=== PATIENT | female | born 1950 | race Caucasian/White ===

== ENCOUNTER 2017-10-07 18:35 | Emergency (ER) | payer MEDICARE, OTHER ==
[2017-10-07 19:11] LABS: #Eosinphils 0.2 thou/uL (0.0-0.7); #Lymphocytes 2.8 thou/uL (1.20-3.40); #Monocytes 0.9 thou/uL (0.11-0.59); %Basophils 0.6 % (0.0-1.0); %Eosinophils 3.4 % (0.0-10.0); %Lymphocytes 40.2 % (21.0-51.0); %Monocytes 12.7 % (0.0-10.0); %Neutrophils 43.1 % (42.0-75.0); Mean Corpuscular HGB CONC 34.6 g/dL (32.0-36.0); Mean Corpuscular Hemoglobin 33.3 pg (27.0-31.0); Mean Corpuscular Volume 96.2 fl (81.0-99.0); Mean Platelet Volume 9.4 fL (7.4-10.4); Platelet Count 152 thou/uL (130-400); Red Blood Cell (RBC) Count 3.92 mill/uL (4.20-5.40)
[2017-10-07 19:35] LABS: ALT (SGPT) 12 U/L (8-55); AST (SGOT) 15 U/L (5-34); Albumin 4.5 g/dL (3.4-4.8); Alkaline Phosphatase 63 U/L (40-150); Anion Gap 13 mmol/L (10-20); BUN (Urea Nitrogen) 17 mg/dL (9.8-20.1); Bilirubin, Total 0.7 mg/dL (0.2-1.2); CK (CPK) 81 U/L (29-168); Calc. Creatinine Clearance 0 mL/min (70-130); Calcium 9.3 mg/dL (7.8-10.44); Carbon Dioxide 26 mmol/L (23-31); Chloride 102 mmol/L (98-107); Estimated GFR-MDRD 49; Globulin 2.6 g/dL (2.4-3.5); Glucose 87 mg/dL (80-115); Lipase 54 U/L (8-78); Potassium 3.4 mmol/L (3.5-5.1); Protein, Total 7.1 g/dL (6.0-8.3); Sodium 138 mmol/L (136-145)
--- NOTE | 2017-10-07 21:01 | CT ---
CT ABDOMEN AND PELVIS WITH IV CONTRAST 10/07/17 Multiple axial tomograms obtained through the abdomen and pelvis with IV enhancement. Oral contrast w as not administered. INDICATIONS: Left lower quadrant abdominal pain. There is a history of diverticulitis. Comparison made to a CT abdomen and pelvis 01/23/16 which did demonstrate diverticulitis in the left l ower quadrant. FINDINGS: Lung bases clear. Liver, spleen, and pancreas unremarkable. Adrenal glands and kidneys unremarkable. There is mild distention of the proximal small bowel loops. There is also fecalization of these loops which is nonspecific but often can be seen with bowel obstruction. The distal small bowel loops are normal caliber. This raises the possibility of a low grade small bowel obstruction in the proximal sm all bowel. There appears to be an abrupt change in caliber and this could represent an adhesion. The colon is filled with stool. There are mild inflammatory changes surrounding the lower left colon. There is diverticulosis present. This would indicate early changes of diverticulitis. There is no ev idence of extraluminal fluid, abscess, or gas. Images through the pelvis show unremarkable urinary bladder. The patient appears to be post hysterect ramirez. Aorta is normal caliber. IMPRESSION: 1. Mild dilatation of proximal small bowel loops. There is fecalization within these loops and t here is an abrupt change in caliber in the mid to proximal small bowel. Low grade obstruction possibl y from adhesion is suspected. 2. Mild inflammatory change involving the lower left colon consistent with diverticulitis. No ev idence of extraluminal fluid or abscess. 3. Also noted are tiny radiodense gallstones within the gallbladder. POS: [facility]
[2017-10-07 23:06] LABS: Bilirubin Small (Negative); Blood, Urine Negative (Negative); Clarity CLEAR (Clear); Glucose, Urine (Dipstick) Negative (Negative); Leukocyte Moderate (Negative); Nitrite Negative (Negative); Protein, Urine (Dipstick) Trace mg/dL (Neg-Trace); Specific Gravity, Urine 1.027 (1.002-1.036); Urobilinogen 0.2 mg/dL (0.2-1.0)
[2017-10-07 23:11] LABS: Bacteria/HPF None Seen HPF (None Seen); Hyaline Casts/LPF 4-6 HYALINE CAST LPF (0-3 Hyaline); Pathc Cast-AUWi Flag 0.29 (0-2.49); Squamous Epithelial 0-3 HPF (0-3); WBC/HPF 21-50 HPF (0-3)
[2017-10-07 23:22] LABS: RBC/HPF 0-3 HPF (0-3)
== END 2017-10-07 22:58 | disposition home or self-care (01) ==
LOC: ERS 18:35
DX: K56.609 Unspecified intestinal obstruction, unspecified as to partial versus complete obstruction (principal); K57.92 Diverticulitis of intestine, part unspecified, without perforation or abscess without bleeding; I25.10 Atherosclerotic heart disease of native coronary artery without angina pectoris; I10 Essential (primary) hypertension; E78.5 Hyperlipidemia, unspecified; J45.909 Unspecified asthma, uncomplicated; Z79.82 Long term (current) use of aspirin; Z79.899 Other long term (current) drug therapy
CPT/HCPCS: 36415; 74177; 80053; 81003; 81015; 82550; 83605; 83690; 85025; 96360; 96372

== ENCOUNTER 2017-10-15 10:21 | Outpatient (CLI) | payer OTHER | END 2017-10-15 10:22 | disposition home or self-care (01) | LOC: BICRAD 10:21 | PROVIDERS: ATTEND Internal Medicine Gastroenterology | DX: K57.32 Diverticulitis of large intestine without perforation or abscess without bleeding (principal); R93.3 Abnormal findings on diagnostic imaging of other parts of digestive tract | CPT/HCPCS: 74022 ==

== ENCOUNTER 2017-11-13 18:33 | Emergency (ER) | payer MEDICARE, OTHER ==
[~2017-11-13 18:33] MED LIST: ISOVUE-370 76%-LOCM 1 ML ONE
[2017-11-13] MEDS ORDERED: Ondansetron HCl/PF 4 MG/2 ML Vial ONE (18:56)
[2017-11-13 18:59] LABS: #Eosinphils 0.1 thou/uL (0.0-0.7); #Lymphocytes 2.8 thou/uL (1.20-3.40); #Neutrophils 4.1 thou/uL (1.40-6.50); %Basophils 0.2 % (0.0-1.0); %Eosinophils 1.7 % (0.0-10.0); %Lymphocytes 34.5 % (21.0-51.0); %Monocytes 12.4 % (0.0-10.0); %Neutrophils 51.3 % (42.0-75.0); Hemoglobin 13.9 g/dL (12.0-16.0); Mean Corpuscular HGB CONC 34.5 g/dL (32.0-36.0); Mean Corpuscular Hemoglobin 33.2 pg (27.0-31.0); Mean Corpuscular Volume 96.2 fL (78.0-98.0); Mean Platelet Volume 9.5 fL (7.4-10.4); Platelet Count 166 thou/uL (130-400); RBC Distribution Width 11.2 % (11.5-14.5)
[2017-11-13 19:05] LABS: PTT 30.3 SEC (22.9-36.1)
[2017-11-13 19:09] LABS: INR-International Normal Ratio 0.9; Prothrombin Time 12.3 SEC (12.0-14.7)
[2017-11-13 19:18] LABS: ALT (SGPT) 14 U/L (8-55); AST (SGOT) 20 U/L (5-34); Albumin 5.1 g/dL (3.4-4.8); Alkaline Phosphatase 67 U/L (40-150); Anion Gap 15 mmol/L (10-20); BUN (Urea Nitrogen) 17 mg/dL (9.8-20.1); Bilirubin, Total 1.2 mg/dL (0.2-1.2); Calc. Creatinine Clearance 0 mL/min (70-130); Carbon Dioxide 24 mmol/L (23-31); Chloride 99 mmol/L (98-107); Estimated GFR-MDRD 37; Globulin 2.7 g/dL (2.4-3.5); Glucose 86 mg/dL (80-115); Potassium 3.8 mmol/L (3.5-5.1); Protein, Total 7.8 g/dL (6.0-8.3); Sodium 134 mmol/L (136-145)
[2017-11-13 19:22] LABS: Troponin I Less than 0.010 ng/mL (< 0.028)
--- NOTE | 2017-11-13 22:07 | CT ---
CT AORTOGRAM OF CHEST AND ABDOMEN WITH CONTRAST: 11/13/17 Multiple axial tomograms obtained of chest and abdomen following aortogram protocol with arterial pha se enhancement. Multiplanar reconstruction and 3D postprocessing. INDICATIONS: Assess for aortic dissection, back pain. FINDINGS: The thoracic aorta appears unremarkable with no aneurysmal dilatation or dissection. The abdominal aorta is unremarkable with mild atherosclerotic change. No dissection and no aneurysmal dilatation. Aortic branches including celiac artery, superior mesenteric artery, and renal arteries appears unremarkable. there is calcified plaque at the proximal left renal artery which appears to pr oduce moderate stenosis. The aortic bifurcation is unremarkable. The lung garcia appear clear. Mild atelectasis in the posterior lung bases. Liver, spleen and pancreas unremarkable. Adrenal glands and kidneys unremarkable. Bowel loops unremar kable. There is a tiny calcified gallstone seen along the wall of the gallbladder. Osseous structures are unremarkable. IMPRESSION: 1. No evidence of thoracic or abdominal aortic dissection or aneurysm. 2. Calcified plaque in the proximal left renal artery produces moderate stenosis. The degree of stenosis appears to be hemodynamically significant approaching 50% diameter. 3. There is evidence of cholelithiasis with one tiny calcified gallstone noted along the wall of the gallbladder. Incidentally noted is a small fixed sliding diaphragmatic hernia. POS: [facility]
[2017-11-13] MEDS ORDERED: Acetaminophen 500 MG TAB ONE (23:00)
[2017-11-13] MEDS ORDERED: Cyclobenzaprine 10 MG TAB ONE (23:00)
== END 2017-11-13 23:35 | disposition home or self-care (01) ==
LOC: ERS 18:33
DX: M62.830 Muscle spasm of back (principal); I25.10 Atherosclerotic heart disease of native coronary artery without angina pectoris; I10 Essential (primary) hypertension; E78.5 Hyperlipidemia, unspecified; J45.909 Unspecified asthma, uncomplicated; Z79.82 Long term (current) use of aspirin; Z79.899 Other long term (current) drug therapy
CPT/HCPCS: 71275; 80053; 83690; 84484; 85025; 85610; 85730; 93005; 96374; 96375; 96376; J2270; J2405

== ENCOUNTER 2017-11-30 15:18 | Outpatient (CLI) | payer MEDICARE | END 2017-11-30 15:19 | disposition home or self-care (01) | LOC: BICRAD 15:18 | PROVIDERS: ATTEND Family Medicine | DX: M54.6 Pain in thoracic spine (principal) | CPT/HCPCS: 72072 ==

== ENCOUNTER 2019-03-20 13:57 | Outpatient (CLI) | payer MEDICARE ==
--- NOTE | 2019-03-20 16:21 | BD ---
DEXA BONE DENSITY STUDY: Date: 03/20/19 HISTORY: Postmenopausal. FINDINGS: Lumbar Spine: BMD (g/cm2) L1 0.606 T-Score: -3.5 L2 0.869 T-Score: -1.4 L3 0.914 T-Score: -1.5 L4 0.802 T-Score: -2.4 Total 0.806 T-Score: -2.2 Left Femoral Neck: 0.642 T-Score: -1.9 Total Femur: 0.851 T-Score: -0.7 IMPRESSION: 1. Osteopenia of the lumbar spine and left femoral neck. 2. 10 year fracture risk for major osteoporotic fracture is 17% and for hip fracture is 2.3%. These fracture probabilities are calculated for an untreated patient. POS: [facility]
--- NOTE | 2019-03-20 16:40 | MMO ---
Bilateral MAMMO Bilat Screen [facility]. CLINICAL HISTORY: Patient is 68 years old and is seen for screening. The patient has no family history of breast cancer. The patient has no personal history of cancer. VIEWS: The views performed were: bilateral craniocaudal with tomosynthesis and bilateral mediolateral oblique with tomosynthesis. FILMS COMPARED: The present examination has been compared to a prior imaging study performed at [facility] on 05/13/2015. This study has been interpreted with the assistance of computer-aided detection. MAMMOGRAM FINDINGS: There are scattered fibroglandular densities. There are no suspicious masses, suspicious calcifications, or new areas of architectural distortion. IMPRESSION: THERE IS NO MAMMOGRAPHIC EVIDENCE OF MALIGNANCY. A ROUTINE FOLLOW-UP MAMMOGRAM IN 1 YEAR IS RECOMMENDED. THE RESULTS OF THIS EXAM WERE SENT TO THE PATIENT. ACR BI-RADS Category 1 - Negative MAMMOGRAPHY NOTE: 1. A negative mammogram report should not delay a biopsy if a dominant of clinically suspicious mass is present. 2. Approximately 10% to 15% of breast cancers are not detected by mammography. 3. Adenosis and dense breasts may obscure an underlying neoplasm. Reported by: BRITTANY WALDRON MD Electonically Signed: [id number]
== END 2019-03-20 13:58 | disposition home or self-care (01) ==
LOC: BICMAMMO 13:57
PROVIDERS: ATTEND Family Medicine
DX: Z12.31 Encounter for screening mammogram for malignant neoplasm of breast (principal); Z13.820 Encounter for screening for osteoporosis; Z78.0 Asymptomatic menopausal state; M85.89 Other specified disorders of bone density and structure, multiple sites
CPT/HCPCS: 77063; 77067; 77080

== ENCOUNTER 2019-04-11 11:24 | Observation (INO) | payer MEDICARE ==
[2019-04-11 12:01] LABS: #Basophils 0.1 thou/uL (0.0-0.2); #Eosinphils 0.1 thou/uL (0.0-0.7); #Monocytes 0.5 thou/uL (0.11-0.59); #Neutrophils 2.8 thou/uL (1.40-6.50); %Eosinophils 2.5 % (0.0-10.0); %Lymphocytes 36.3 % (21.0-51.0); %Neutrophils 51.2 % (42.0-75.0); Hemoglobin 15.3 g/dL (12.0-16.0); Mean Corpuscular HGB CONC 34.4 g/dL (32.0-36.0); Mean Platelet Volume 9.6 fL (7.4-10.4); Platelet Count 165 thou/uL (130-400); RBC Distribution Width 11.6 % (11.5-14.5); Red Blood Cell (RBC) Count 4.63 mill/uL (4.20-5.40); White Blood Cell (WBC) Count 5.5 thou/uL (4.8-10.8)
[2019-04-11] MEDS ORDERED: Ondansetron PF 4 MG/2 ML Vial ONE (12:09)
--- NOTE | 2019-04-11 12:20 | RAD ---
CHEST 1 VIEW: Date: 04/11/19 HISTORY: Syncope. Diaphoresis. Nausea. COMPARISON: 08/15/16. FINDINGS: Heart size is normal. The lungs are clear. IMPRESSION: No acute intrathoracic disease. Stable from prior study. POS: [facility]
[2019-04-11 12:35] LABS: ALT (SGPT) 15 U/L (8-55); AST (SGOT) 18 U/L (5-34); Alkaline Phosphatase 71 U/L (40-110); Anion Gap 19 mmol/L (10-20); BUN (Urea Nitrogen) 13 mg/dL (9.8-20.1); Bilirubin, Total 1.2 mg/dL (0.2-1.2); Calc. Creatinine Clearance 0 mL/min (70-130); Calcium 11.1 mg/dL (7.8-10.44); Carbon Dioxide 23 mmol/L (23-31); Estimated GFR-MDRD 45; Globulin 2.9 g/dL (2.4-3.5); Glucose 85 mg/dL (80-115); Lipase 56 U/L (8-78); Protein, Total 7.9 g/dL (6.0-8.3)
[2019-04-11 12:51] LABS: Chloride 101 mmol/L (98-107); Potassium 3.9 mmol/L (3.5-5.1); Sodium 139 mmol/L (136-145)
[2019-04-11 13:34] LABS: Bilirubin Negative (Negative); Blood, Urine Negative (Negative); Clarity Turbid (Clear); Glucose, Urine (Dipstick) Normal (Negative); Leukocyte Negative Leu/uL (Negative); Nitrite Negative (Negative); Protein, Urine (Dipstick) Negative (Neg-Trace); Urobilinogen Normal mg/dL (Less than 2)
[2019-04-11 16:33] VITALS: BMI 28.7
[2019-04-11 17:06] LABS: Troponin I Less than 0.010 ng/mL (< 0.028)
[2019-04-11] MEDS ORDERED: Ondansetron ODT 4 MG TAB PO PRN (17:27)
[2019-04-11] MEDS ORDERED: Ondansetron PF 4 MG/2 ML Vial IVP PRN (17:27)
[2019-04-11] MEDS ORDERED: Sodium Chloride 0.9% 1,000 ML IV SCH ×2 (17:30)
--- NOTE | 2019-04-11 18:06 | HP ---
TIME OF ASSESSMENT: 1600 hours. PRIMARY CARE PHYSICIAN: Tamika Gann MD CHIEF COMPLAINT: Syncope, nausea/vomiting. HISTORY OF PRESENT ILLNESS: Ms. 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 The patient states she was at work putting books away and had already eaten lunch when suddenly she began to feel queasy, diaphoretic and lightheaded. She started to go to the school nurse and alerted a co-worker. She had a syncopal episode with loss of consciousness for approximately 30 seconds according to the patient's co-worker. She does not recall fainting or the moment immediately before it happened. She denies experiencing any preceding chest pain, headache, or dizziness. Denies any associated shortness of breath. She states that she has been in her usual health over the last several days. She has never had a syncopal episode in the past, but does have a history of coronary artery disease and underwent a coronary artery stent placement after presenting with left-sided back pain. She follows closely with Dr. Hubbard and underwent a stress test recently that was unremarkable. She also reports undergoing an echo within the last year. At this present time, she denies any complaints. Her nausea and vomiting have settled. ED COURSE: In the emergency department, she was given Zofran for nausea. She had an EKG done showing a normal sinus rhythm with a heart rate of 66 with infrequent premature ventricular complexes. There were no ST changes present. This was the second EKG. The initial EKG also shows normal sinus rhythm with a heart rate of 65. Chest x-ray was done showing no acute intrathoracic disease. Urinalysis was done and showed a turbid appearance, but otherwise negative. Laboratory studies were done showing a normal full blood count. Sodium was 139, potassium 3.9, BUN 13, creatinine elevated at 1.21, GFR 45, glucose 85, calcium 11.1, total bilirubin 1.2. AST 18, ALT 15, alkaline phosphatase 71. Troponin negative x2. Albumin 5. Lipase 56. The patient was admitted for further workup of syncope. PAST MEDICAL HISTORY: 1. Coronary artery disease. 2. Hypertension. 3. Hyperlipidemia. 4. Asthma. PAST SURGICAL HISTORY: 1. Coronary artery stent x1. 2. Hysterectomy. 3. Right knee surgery. 4. Tonsillectomy. SOCIAL HISTORY: The patient is fully independent and lives with her family. Denies any tobacco use or illicit drug use. She drinks alcohol socially only. ALLERGIES: CODEINE, SULFATE, LACTOSE INTOLERANCE. CURRENT MEDICATIONS: 1. Albuterol. 2. Aspirin. 3. Zetia. 4. Protonix. 5. Effient. 6. Ranexa. 7. Crestor. 8. Valsartan. PHYSICAL EXAMINATION: GENERAL: The patient appears well developed, well nourished, is in no acute distress. VITAL SIGNS: Temperature 97.7, pulse 66, respirations 16, O2 saturation 100% on room air, blood pressure 172/76. HEENT: Normocephalic and atraumatic. Pupils are equal, round, and reactive to light. Sclerae are without icterus. Oropharynx is clear. NECK: Supple. LUNGS: Clear to auscultation bilaterally without any wheezes, rales, or rhonchi. CARDIAC: Regular rate and rhythm. ABDOMEN: Soft, nontender, and nondistended. Normoactive bowel sounds present. No guarding or rigidity. No renal angle tenderness. EXTREMITIES: No lower leg swelling or edema. NEUROLOGIC: Alert and oriented x3. No neuro deficits on exam. Power is 5/5 in all limbs. Sensation is intact. Facial movements are normal. Speech is normal. SKIN: Warm and dry. INVESTIGATIONS: As mentioned above in HPI. IMPRESSION AND PLAN: Ms. Quintero is a very pleasant 68-year-old woman, who presents after a syncopal episode, referred for the followin. Syncope. The patient states that she had an echocardiogram done within the last year. Request has been placed to obtain this report. She follows closely with Dr. Hubbard. We will continue cardiac monitoring. Consider Holter monitor, to be arranged as outpatient. We will continue to trend troponins. I have added a BNP and magnesium level. We will also check D-dimer, though clinical suspicion is very low for possibility of pulmonary embolism. 2. Acute kidney injury. The patient is with creatinine of 1.21. She does endorse poor fluid intake. This is most likely the cause of her syncopal episode. Orthostatic blood pressures have been requested. We will start gentle IV hydration. Repeat renal function with a.m. labs. 3. Hypertension. Monitor blood pressure and resume home medications. 4. Hyperlipidemia. Resume home medications once verified. 5. Coronary artery disease. Resume home medications. 6. Deep venous thrombosis prophylaxis. The patient is ambulatory. 7. Code status, full. Surrogate decision maker is her daughter, Monika Cintron. The patient's case was discussed with attending, who agrees with the plan of care as described above. Job ID: [id number]
[2019-04-11] MEDS: PROVENTIL INHALER 6.7 G (200 INHALATIONS) INH SCH ×2 (19:36→21:56)
[2019-04-11] MEDS ORDERED: Rosuvastatin 20 MG TAB PO SCH (21:00)
[2019-04-12] MEDS: PROVENTIL INHALER 6.7 G (200 INHALATIONS) INH SCH ×4 (02:50→14:05)
[2019-04-12 04:47] LABS: #Eosinphils 0.2 thou/uL (0.0-0.7); #Lymphocytes 2.6 thou/uL (1.20-3.40); #Monocytes 0.7 thou/uL (0.11-0.59); #Neutrophils 2.1 thou/uL (1.40-6.50); %Basophils 0.5 % (0.0-1.0); %Lymphocytes 46.1 % (21.0-51.0); %Monocytes 12.7 % (0.0-10.0); %Neutrophils 37.7 % (42.0-75.0); Hemoglobin 13.2 g/dL (12.0-16.0); Mean Corpuscular HGB CONC 34.4 g/dL (32.0-36.0); Mean Corpuscular Volume 96.1 fL (78.0-98.0); Mean Platelet Volume 9.7 fL (7.4-10.4); Platelet Count 148 thou/uL (130-400); RBC Distribution Width 11.5 % (11.5-14.5); Red Blood Cell (RBC) Count 4.01 mill/uL (4.20-5.40); White Blood Cell (WBC) Count 5.6 thou/uL (4.8-10.8)
[2019-04-12 05:02] LABS: Anion Gap 11 mmol/L (10-20); BUN (Urea Nitrogen) 13 mg/dL (9.8-20.1); Calc. Creatinine Clearance 57 mL/min (70-130); Calcium 8.9 mg/dL (7.8-10.44); Carbon Dioxide 27 mmol/L (23-31); Cardiac Risk 2.2 (Less than 4.5); Chloride 101 mmol/L (98-107); Cholesterol 133 mg/dl (< 200 Desired); Estimated GFR-MDRD 50; Glucose 88 mg/dL (80-115); HDL Cholesterol 61 mg/dL (>60 Neg Risk); LDL Cholesterol, Calculated 53 mg/dL; Potassium 4.3 mmol/L (3.5-5.1); Sodium 135 mmol/L (136-145); Triglycerides 94 mg/dL (Less than 150)
[2019-04-12] MEDS ORDERED: Prasugrel 10 MG TAB PO SCH (09:00)
[2019-04-12] MEDS ORDERED: Aspirin Chewable 81 MG TAB PO SCH (09:00)
[2019-04-12] MEDS ORDERED: Ezetimibe 10 MG TAB PO SCH (09:00)
[2019-04-12] MEDS ORDERED: Valsartan 80 MG TAB PO SCH (09:00)
[2019-04-12 12:45] VITALS: BP 141/70; TEMP 97.8
--- NOTE | 2019-04-12 14:32 | PRG ---
DATE OF SERVICE: 04/12/2019 SUBJECTIVE: Ms. Quintero had a syncopal episode yesterday. The patient had a very long prodrome. She felt weak, lightheaded, nauseated, tingly. She said she did not feel well and told the co-worker that she might faint. Her co-worker fortunately was there and help her get to the ground. She regained consciousness. She was brought here. Cardiac enzymes were negative. EKGs were normal. The patient still has some orthostatic hypotension, but it is improved after fluid. OBJECTIVE: VITAL SIGNS: The patient's blood pressure now 140/70, pulse 70. LUNGS: Clear. CARDIAC: Normal S1 and S2. ABDOMEN: Soft, nontender. As mentioned, all the tests were normal. ASSESSMENT: 1. Orthostatic hypotension. 2. She had a stress test earlier this year with no ischemia with normal left ventricular function. PLAN: 1. Stop hydrochlorothiazide. 2. Reduce losartan to 25 mg a day. 3. Other medicines unchanged. Follow up in the office in 1 month. Discussed with her the sensation of orthostatic hypotension. The importance of sitting down or lying down quickly if she feels lightheaded. Job ID: [id number]
[2019-04-13] MEDS ORDERED: Clopidogrel Bisulfate 75 MG TAB PO SCH (09:00)
[2019-04-13] MEDS ORDERED: Losartan 25 MG TAB PO SCH (09:00)
--- NOTE | 2019-04-13 09:59 | DIS ---
DATE OF ADMISSION: 04/11/2019 DATE OF DISCHARGE: 04/12/2019 DISCHARGE DISPOSITION: Home. FOLLOWUP: Follow up with primary care physician, Dr. Gann in 3 days, then follow up with Cardiology, Dr. Hubbard in 2 to 3 weeks. ALLERGIES: THE PATIENT IS ALLERGIC TO CODEINE. THE PATIENT WAS SEEN ON THE DAY OF DISCHARGE. DENIES ANY NEW COMPLAINTS. DISCHARGE MEDICATIONS: 1. Losartan 25 mg daily. 2. Crestor 40 mg daily. 3. Ranexa 1000 mg b.i.d. 4. Effient 10 mg daily. 5. Protonix 40 mg daily. 6. Singulair 10 mg daily. 7. Natalee 180 mg daily. 8. Zetia 10 mg daily. 9. Vitamin D3, 1000 units daily. 10. Aspirin 81 mg daily. 11. Albuterol inhaler as needed. BRIEF HOSPITAL COURSE: The patient is a 68-year-old female with coronary artery disease, hypertension, and hyperlipidemia, presented to the hospital with a syncopal episode. Please refer to the history and physical dictated by Kandy Hancock for further details. The patient was admitted to the telemetry unit with a diagnosis of syncope, suspected to be secondary to orthostatic hypotension and dehydration. She was found to have elevated creatinine of 1.21 on admission that improved to 1.09 at discharge. Hydrochlorothiazide has been discontinued. She has been started on low-dose losartan per Dr. Hubbard's recommendation. She has been cleared by Dr. Hubbard for discharge. FINAL DIAGNOSES: 1. Syncope, secondary to orthostatic hypotension. 2. No reversible ischemia on recent stress test at Dr. Hubbard's office. 3. Hypertension. 4. Hyperlipidemia. 5. Coronary artery disease. 6. Mild acute kidney injury on chronic kidney disease, stage 3. 7. Dehydration on admission. Plan was discussed with the patient in detail. She stated understanding. Job ID: [id number]
== END 2019-04-12 15:14 | disposition home or self-care (01) ==
LOC: ERS 11:24 → 2SW 16:21
PROVIDERS: ADMIT Internal Medicine; ATTEND Internal Medicine
DX: I95.1 Orthostatic hypotension (principal); R11.2 Nausea with vomiting, unspecified; I12.9 Hypertensive chronic kidney disease with stage 1 through stage 4 chronic kidney disease, or unspecified chronic kidney disease; N18.3 Chronic kidney disease, stage 3 (moderate); N17.9 Acute kidney failure, unspecified; I25.10 Atherosclerotic heart disease of native coronary artery without angina pectoris; E78.5 Hyperlipidemia, unspecified; J45.909 Unspecified asthma, uncomplicated; E86.0 Dehydration; Z79.82 Long term (current) use of aspirin; Z79.899 Other long term (current) drug therapy; Z88.2 Allergy status to sulfonamides; Z91.011 Allergy to milk products; Z95.5 Presence of coronary angioplasty implant and graft
CPT/HCPCS: 71045; 80048; 80061; 81003; 83690; 83735; 83880; 84484 ×2; 85025; 85379; 93005; 94640 ×2; 96361 ×2; 96374; 97139; 99285; G0378 ×3; 36415; 80053; 84443; J2405

== ENCOUNTER 2019-05-05 21:00 | Emergency (ER) | payer MEDICARE ==
[2019-05-05] MEDS ORDERED: Adacel (T-DAP) 0.5 ML SYRINGE ONE (21:45)
[2019-05-05] MEDS ORDERED: Fentanyl 100 MCG/2 ML VIAL ONE (21:48)
[2019-05-05] MEDS ORDERED: Ondansetron PF 4 MG/2 ML Vial ONE (21:48)
[2019-05-05] MEDS ORDERED: CEFAZOLIN 1 GM VIAL ONE (21:48)
[2019-05-05] MEDS ORDERED: Bacitracin 1 PK ONE (22:59)
--- NOTE | 2019-05-05 23:43 | CT ---
CT Brain WO Con: 05/05/2019 9:37 PM CLINICAL HISTORY: Fall. IMAGING TECHNIQUE: Multiple CT images were obtained of the brain without IV contrast. COMPARISON: CT the brain with and without contrast dated June 08, 2014. FINDINGS: Brain: No acute infarct or hemorrhage is evident. No midline shift. There is stable mild chronic sm all vessel white matter ischemic change. Small amount of gas is present within the region of the cavernous sinuses bilaterally. Ventricles: Normal. No hydrocephalus.. Skull: Intact.. Visualized Paranasal sinuses: There is an air-fluid level within the right maxillary sinus. There is a defect involving the right medial orbital wall which is new on image 70 series 3 suspicious for a mildly impacted right medial orbital wall fracture.. Mastoid air cells:Clear. Extracranial soft tissues:There is a suspected laceration involving the right frontal scalp. IMPRESSION: Small amount of gas seen in the region of the cavernous sinuses bilaterally. Anterior skull base frac ture is not excluded. Recommend dedicated thin section CT of the face for further evaluation. Right medial orbital wall fracture. There is an air-fluid level within the right maxillary sinus. Rig ht maxillary sinus fractures are not excluded. No intracranial hemorrhage, hydrocephalus or midline shift is present. There is stable mild chronic s mall vessel white matter ischemic change. Findings called to Dr. Early at 11:40 PM on May 05, 2019.
--- NOTE | 2019-05-05 23:45 | CT ---
CT Cervical Spine WO Con Indication: Fall with neck pain COMPARISON: None. FINDINGS: Fracture: None. Spinal alignment: No acute malalignment. Craniocervical junction: Within normal limits. Vertebral body heights: Maintained. Cervical spine degenerative change: There is mild multilevel spondylosis of the cervical spine. There is ankylosis of the left C2 and C3 facet complexes. Lung apices: Clear. IMPRESSION: No acute osseous abnormality.
--- NOTE | 2019-05-06 00:05 | CT ---
EXAM: CT facial bones PROVIDED CLINICAL HISTORY: Fall COMPARISON: None FINDINGS: Bones: Nasal bones: Intact. Maxilla: Intact. Mandible: Intact. Zygomatic arches: Intact. Pterygoid plates: Intact. Orbital rims: Intact. Orbital wall and floor: There is a mildly impacted, comminuted right medial orbital wall fracture wit h hemorrhage present within the right ethmoid air cells and layered within the right maxillary sinus. Frontal skull: There is a soft tissue laceration overlying the right frontal skull. No depressed or d isplaced skull fracture is evident. Paranasal sinuses: As above Orbits: The bilateral globes are intact. Visualized intracranial contents: Small amount of gas is seen within the cavernous sinus. No visible skull base fracture is evident. The gas may be related to IV placement. Cervical spine: Intact. Soft tissues: There is soft tissue laceration involving the right frontal scalp. IMPRESSION: Comminuted, mildly impacted right medial orbital wall fracture with hemorrhage present within the rig ht ethmoid air cells and right maxillary sinus. No visible anterior skull base fracture. Gas present within the cavernous sinus may be related to IV placement. Right frontal scalp laceration Findings called to Dr. Early at 12:00 AM on May 06, 2019.
== END 2019-05-06 00:39 | disposition home or self-care (01) ==
LOC: ERS 21:00
DX: S02.831A Fracture of medial orbital wall, right side, initial encounter for closed fracture (principal); S01.81XA Laceration without foreign body of other part of head, initial encounter; S01.01XA Laceration without foreign body of scalp, initial encounter; I10 Essential (primary) hypertension; I25.10 Atherosclerotic heart disease of native coronary artery without angina pectoris; E78.5 Hyperlipidemia, unspecified; E78.00 Pure hypercholesterolemia, unspecified; J45.909 Unspecified asthma, uncomplicated; Z23 Encounter for immunization; Z79.899 Other long term (current) drug therapy; Z79.82 Long term (current) use of aspirin; W10.9XXA Fall (on) (from) unspecified stairs and steps, initial encounter; Y92.254 Theater (live) as the place of occurrence of the external cause
CPT/HCPCS: 12032; 70450; 70486; 72125; 90471; 90715; 96365; 96375; J0690; J2405; J3010

== ENCOUNTER 2020-07-04 16:19 | Outpatient (CLI) | payer MEDICARE, BC | END 2020-07-04 16:20 | disposition home or self-care (01) | LOC: CTENTCT 16:19 | PROVIDERS: ATTEND Otolaryngology Plastic Surgery within the Head & Neck | DX: J32.8 Other chronic sinusitis (principal) | CPT/HCPCS: 70486 ==

== ENCOUNTER 2021-12-14 13:52 | Emergency (ER) | payer BC, MEDICARE ==
[2021-12-14] MEDS ORDERED: Morphine 4 MG/ML VIAL ONE (14:45)
== END 2021-12-14 15:38 | disposition home or self-care (01) ==
LOC: ERS 13:52
DX: M54.2 Cervicalgia (principal); M62.838 Other muscle spasm; I25.10 Atherosclerotic heart disease of native coronary artery without angina pectoris; E78.00 Pure hypercholesterolemia, unspecified; I10 Essential (primary) hypertension; Z79.899 Other long term (current) drug therapy
CPT/HCPCS: 96372; 99283; J2270

== ENCOUNTER 2022-04-14 19:30 | Outpatient (CLI) | payer BC, MEDICARE | END 2022-04-14 19:31 | disposition home or self-care (01) | LOC: SLEEPLAB 19:30 | PROVIDERS: ATTEND Internal Medicine Pulmonary Disease | DX: G47.33 Obstructive sleep apnea (adult) (pediatric) (principal); R53.83 Other fatigue; R06.83 Snoring; G47.10 Hypersomnia, unspecified; E66.9 Obesity, unspecified; G47.52 REM sleep behavior disorder; Z68.29 Body mass index [BMI] 29.0-29.9, adult | CPT/HCPCS: 95811 ==

== ENCOUNTER 2022-05-29 08:38 | Observation (INO) | payer BC, MEDICARE ==
[2022-05-29] MEDS ORDERED: Aspirin 325 MG TAB ONE (08:57)
[2022-05-29] MEDS ORDERED: Aspirin Chewable 81 MG TAB ONE (09:12)
[2022-05-29 09:43] LABS: #Eosinphils 0.2 thou/uL (0.0-0.7); #Lymphocytes 2.2 thou/uL (1.20-3.40); #Monocytes 0.6 thou/uL (0.11-0.59); #Neutrophils 1.6 thou/uL (1.40-6.50); %Basophils 0.2 % (0.0-1.0); %Eosinophils 3.3 % (0.0-10.0); %Lymphocytes 47.9 % (21.0-51.0); %Monocytes 13.7 % (0.0-10.0); %Neutrophils 34.8 % (42.0-75.0); Hemoglobin 13.8 g/dL (12.0-16.0); Mean Corpuscular HGB CONC 33.2 g/dL (32.0-36.0); Mean Corpuscular Hemoglobin 32.4 pg (27.0-31.0); Mean Corpuscular Volume 97.5 fl (78.0-98.0); Mean Platelet Volume 9.4 fL (7.4-10.4); Platelet Count 157 10x3/uL (130-400); RBC Distribution Width 11.8 % (11.5-14.5); Red Blood Cell (RBC) Count 4.27 mill/uL (4.20-5.40); White Blood Cell (WBC) Count 4.5 10x3/uL (4.8-10.8)
[2022-05-29 10:02] LABS: ALT (SGPT) 12 U/L (8-55); AST (SGOT) 19 U/L (5-34); Albumin 4.5 g/dL (3.4-4.8); Alkaline Phosphatase 69 U/L (40-110); Anion Gap 14 mmol/L (10-20); BUN (Urea Nitrogen) 10 mg/dL (9.8-20.1); Bilirubin, Total 0.8 mg/dL (0.2-1.2); Calc. Creatinine Clearance 0 mL/min (70-130); Calcium 9.9 mg/dL (7.8-10.44); Carbon Dioxide 26 mmol/L (23-31); Chloride 106 mmol/L (98-107); Estimated GFR 59; Globulin 3.1 g/dL (2.4-3.5); Glucose 92 mg/dL (80-115); Lipase 103 U/L (8-78); Magnesium 2.1 mg/dL (1.6-2.6); Potassium 3.7 mmol/L (3.5-5.1); Protein, Total 7.6 g/dL (5.8-8.1); Sodium 142 mmol/L (136-145)
[2022-05-29] MEDS ORDERED: Nitroglycerin 2% Ointment 1 INCH/1 GM Packet ONE (11:03)
[2022-05-29 12:34] VITALS: BMI 29.5
[2022-05-29] MEDS ORDERED: FLU VACC QS2022-23(65YR UP)/PF 240 MCG/0.7 ML SYRINGE IM ONE (14:45)
[2022-05-29] MEDS ORDERED: Acetaminophen 325 MG TAB PO PRN (19:54)
[2022-05-29 20:42] LABS: Troponin I Less than 0.010 ng/mL (< 0.028)
[2022-05-29] MEDS ORDERED: Rosuvastatin 20 MG TAB PO SCH (21:00)
[2022-05-30] MEDS ORDERED: Sodium Chloride 0.9% 1,000 ML IV SCH (02:15)
[2022-05-30] MEDS ORDERED: Clopidogrel Bisulfate 75 MG TAB PO SCH (09:00)
[2022-05-30] MEDS ORDERED: Ezetimibe 10 MG TAB PO SCH (09:00)
[2022-05-30] MEDS ORDERED: Aspirin Chewable 81 MG TAB PO SCH ×2 (09:00)
[2022-05-30] MEDS ORDERED: ADENOSINE 60 MG/20 ML VIAL ONE (09:02)
[2022-05-30 11:59] VITALS: BP 148/62; TEMP 97.7
== END 2022-05-30 14:06 | disposition home or self-care (01) ==
LOC: ERS 08:38 → 2SW 10:56
PROVIDERS: ADMIT Internal Medicine; ATTEND Internal Medicine
DX: R07.89 Other chest pain (principal); I95.9 Hypotension, unspecified; I25.10 Atherosclerotic heart disease of native coronary artery without angina pectoris; E78.00 Pure hypercholesterolemia, unspecified; J45.909 Unspecified asthma, uncomplicated; I13.10 Hypertensive heart and chronic kidney disease without heart failure, with stage 1 through stage 4 chronic kidney disease, or unspecified chronic kidney disease; N18.30 Chronic kidney disease, stage 3 unspecified; I08.1 Rheumatic disorders of both mitral and tricuspid valves; Z87.891 Personal history of nicotine dependence; Z79.02 Long term (current) use of antithrombotics/antiplatelets; Z79.82 Long term (current) use of aspirin; Z79.899 Other long term (current) drug therapy; Z88.5 Allergy status to narcotic agent; Z91.011 Allergy to milk products; Z95.5 Presence of coronary angioplasty implant and graft; Z20.822 Contact with and (suspected) exposure to COVID-19
CPT/HCPCS: 36415; 36416; 71045; 78452; 80053; 83690; 83735; 83880; 84443; 84484; 85025; 90471; 90662; 93005; 93017; 93306; 94760; A9500; G0008; G0378; J0153; J7050; U0003; U0005

== ENCOUNTER 2023-03-16 10:25 | Outpatient (CLI) | payer MEDICARE | END 2023-03-16 10:26 | disposition home or self-care (01) | LOC: BICMAMMO 10:25 | PROVIDERS: ATTEND Family Medicine | DX: Z12.31 Encounter for screening mammogram for malignant neoplasm of breast (principal); Z13.820 Encounter for screening for osteoporosis; M85.89 Other specified disorders of bone density and structure, multiple sites; Z78.0 Asymptomatic menopausal state | CPT/HCPCS: 77063; 77067; 77080 ==

== ENCOUNTER 2023-04-11 00:09 | Emergency (ER) | payer MEDICARE ==
[2023-04-11] MEDS ORDERED: Oxymetazoline HCl 0.05% (30 ML BOT) ONE (02:07)
== END 2023-04-11 03:12 | disposition home or self-care (01) ==
LOC: ERS 00:09
DX: J34.89 Other specified disorders of nose and nasal sinuses (principal); I25.10 Atherosclerotic heart disease of native coronary artery without angina pectoris; I10 Essential (primary) hypertension; E78.00 Pure hypercholesterolemia, unspecified
CPT/HCPCS: 99283

== ENCOUNTER 2025-03-16 13:31 | Emergency (ER) | payer MEDICARE ==
[2025-03-16] MEDS ORDERED: Ondansetron PF 4 MG/2 ML Vial ONE (13:51)
[2025-03-16] MEDS ORDERED: Acetaminophen 500 MG TAB ONE (13:51)
== END 2025-03-16 14:55 | disposition home or self-care (01) ==
LOC: ERS 13:31
DX: S00.83XA Contusion of other part of head, initial encounter (principal); I25.10 Atherosclerotic heart disease of native coronary artery without angina pectoris; E78.00 Pure hypercholesterolemia, unspecified; Z79.899 Other long term (current) drug therapy; Z95.9 Presence of cardiac and vascular implant and graft, unspecified; Z79.82 Long term (current) use of aspirin; W01.198A Fall on same level from slipping, tripping and stumbling with subsequent striking against other object, initial encounter; Y92.219 Unspecified school as the place of occurrence of the external cause
CPT/HCPCS: 70450; 72125; 96374; 99284; J2405